=== PATIENT | male | born 1980 | race American Indian/Alaskan Native ===

== ENCOUNTER → 2018-05-06 11:09 | Outpatient (CLI) | payer MEDICAID, OTHER, SELFPAY ==
--- NOTE | 2018-05-06 | DI.US.S_ITS ---
PROCEDURE: US ABDOMEN COMPLETE INDICATIONS: RIGHT UPPER QUADRANT PAIN TECHNIQUE: Real-time scanning was performed of the abdominal and retroperitoneal organs, with image documentation. COMPARISON: [facility], [place], KIDNEY/ URETER/BLADDER, 11/12/2016, 23:15. [facility], US, ABDOMEN COMPLETE, 04/27/2008, 7:13. FINDINGS: Liver: The liver demonstrates mildly prominent size. The liver demonstrates generalized increased echogenicity. This decreases ultrasound sensitivity for detection of hepatic masses. Gallbladder: No findings of gallstones or sludge are seen. The gallbladder wall is not thickened, measuring 3 mm or less. Likely gallbladder wall adenomyomatosis can be seen. No specific pericholecystic fluid is seen. The sonographic Garner sign is negative. Biliary ducts: Intrahepatic bile ducts are non-dilated. Extrahepatic bile duct caliber measures 2-3 mm. Normal is 6-7 mm or less in diameter, or 10 mm or less post-cholecystectomy. Pancreas: Visualized portions of the pancreas are sonographically normal. Spleen: Spleen is normal in size and homogeneous in echotexture. Kidneys: Kidneys are normal in size and echotexture. Right kidney measures 10.2 cm long; left kidney measures 10.8 cm long. No hydronephrosis or nephrolithiasis. No solid masses. The renal cortex measures within normal limits for thickness. Aorta: Visualized aorta is normal in caliber at less than 3 cm. Iliacs: Not seen, obscured by overlying bowel gas. IVC: Intrahepatic inferior vena cava is patent. Miscellaneous: No free abdominal fluid. IMPRESSION: The gallbladder demonstrates a normal sonographic appearance. No biliary dilatation is seen. The liver mildly prominent in size and demonstrates increased echogenicity. This finding is nonspecific, yet it is most commonly attributed to fatty infiltration. The spleen is not enlarged. Dictated by: Sanju Jones M.D. on 05/06/2018 at 12:41 Approved by: Sanju Jones M.D. on 05/06/2018 at 12:43
== END ==
PROVIDERS: Family Provider Physician Assistant; PCP Physician Assistant; Visit Provider Physician Assistant
DX: R10.11 Right upper quadrant pain (principal)
CPT/HCPCS: 76700

== ENCOUNTER 2018-05-31 21:01 | Emergency (ER) | payer MEDICAID, OTHER, SELFPAY ==
[2018-05-31 21:04] VITALS: BP 115/75; PULSE 84; RESP 14; TEMP 36.8; O2SAT 100
== END 2018-05-31 23:23 | disposition left against medical advice (07) ==
PROVIDERS: Emergency Provider Emergency Medicine; Family Provider Physician Assistant; PCP Physician Assistant
DX: Z53.21 Procedure and treatment not carried out due to patient leaving prior to being seen by health care provider (principal)
CPT/HCPCS: 99282

== ENCOUNTER 2018-06-02 09:45 | Emergency (ER) | payer MEDICAID, OTHER, SELFPAY ==
[2018-06-02 09:49] VITALS: BP 116/72; PULSE 66; RESP 16; TEMP 36.3; O2SAT 99
--- NOTE | 2018-06-02 10:32 | ED.ABDPAIN ---
HPI - Abdominal Pain General Chief Complaint: Abdominal Pain Stated Complaint: upper right side pain Time Seen by Provider: 06/02/18 10:27 Source: patient Mode of arrival: ambulatory Limitations: no limitations History of Present Illness HPI narrative: Patient is a 37-year-old male who presents with right upper quadrant pain. He thinks that there is something wrong with his gallbladder he has never had an ultrasound. He throws up every time he eats. He was supposed to have a referral to [place] surgeon from [facility] however it never went through. He continues to have pain fever. He has not taken anything for pain he currently does not want anything for pain MD complaint: abdominal pain Onset (ago): week(s) Pain Consistency: intermittent Location: RUQ Severity: moderate Quality: sharp Radiation: none Migration to: no migration Relieving factors: nothing Exacerbating factors: nothing Related Data Allergies Allergy/AdvReac Type Severity Reaction Status Date / Time venom-honey bee Allergy Severe Anaphylaxis Verified 05/31/18 21:08 [BEE VENOM (HONEY BEE)] carisoprodol [From SOMA] Allergy Unknown Verified 05/31/18 21:08 cephalexin [CEPHALEXIN] Allergy Unknown Verified 05/31/18 21:08 codeine [CODEINE] Allergy Unknown Verified 05/31/18 21:08 erythromycin base Allergy Unknown Verified 05/31/18 21:08 [From PEDIAZOLE] Penicillins [PENICILLINS] Allergy Unknown Verified 05/31/18 21:08 somatropin [SOMATROPIN] Allergy Unknown Verified 05/31/18 21:08 Sulfa (Sulfonamide Allergy Unknown Verified 05/31/18 21:08 Antibiotics) [SULFA (SULFONAMIDE ANTIBIOTICS)] sulfisoxazole Allergy Unknown Verified 05/31/18 21:08 [From PEDIAZOLE] NSAIDS Allergy Severe Anaphylaxis Uncoded 05/31/18 21:08 Review of Systems Review of Systems GENERAL: Denies chills, fatigue, malaise, fever, sweats, travel HEENT: Denies sinus pain, ear pain, sore throat, difficulty swallowing, neck pain RESPIRATORY: Denies dyspnea, cough, wheezing, hemoptysis, sputum. CARDIOVASCULAR: Denies chest pain, palpitations, orthopnea, edema GASTROINTESTINAL: See HPI : Denies dysuria, frequency, incontinence, hematuria, urinary retention, flank pain. MUSCULOSKELETAL: Denies weakness, joint pain, or bony pain SKIN: No rash, no erythema, no pruritus NEUROLOGIC: Denies weakness, dizziness, headache, numbness, change in speech, confusion PSYCHIATRIC: No concerning psychosocial issues. 12 point review of systems is negative except for those stated above and HPI [facility] Medical History (Updated 06/02/18 @ 12:10 by Leonor Sanchez DO) Patient denies significant medical history (Acute) Surgical History (Updated 06/02/18 @ 17:39 by Leonor Sanchez DO) Status post appendectomy (Acute) Social History Smoking Status: Former smoker Social History Smoking Status: Former smoker Exam Initial Vital Signs Initial Vital Signs: Vital Signs Temperature 97.4 F L 06/02/18 09:49 Pulse Rate 66 06/02/18 09:49 Respiratory Rate 16 06/02/18 09:49 Blood Pressure 116/72 06/02/18 09:49 Pulse Oximetry 99 06/02/18 09:49 GENERAL: Well-appearing, well-nourished and in no acute distress. HEENT: Head atraumatic,EOMI, pupils reactive CARDIOVASCULAR: Regular rate and rhythm without murmurs, rubs or gallops. RESPIRATORY: Breath sounds equal bilaterally, no wheezes rales or rhonchi. ABDOMEN: Soft, RUQ pain, no guarding no rebound EXTREMITIES: Normal range of motion, no clubbing or edema. Neurovascularly intact NEUROLOGICAL: Alert and oriented x4.Normal gait and speech. SKIN: Warm, dry, no laceration, no petechiae, no rashes or lesions. Course Orders Ordered: ED Orders 06/02/18 10:09 Complete Blood Count AUTO DIFF Stat Comprehensive Metabolic Panel Stat Lipase Stat Partial Thromboplastin Time Stat Prothrombin Time INR Stat 06/02/18 10:37 US abdomen complete Stat 06/02/18 11:43 EKG-12 Lead Stat Discontinued Medications Ketorolac Tromethamine (Toradol) 60 mg IM NOW ONE Stop: 06/02/18 10:51 Last Admin: 06/02/18 11:43 Dose: 60 mg Vital Signs - 8 hr 06/02/18 09:49 Temperature 97.4 F L Pulse Rate 66 Respiratory Rate 16 Blood Pressure 116/72 Pulse Oximetry 99 MDM - Abdominal Pain Lab Data Attestation: I reviewed the patient's lab results. Result diagrams: 06/02/18 10:09 06/02/18 10:09 Lab Results 06/02/18 06/02/18 06/02/18 Range/Units 10:09 10:09 10:09 WBC 5.4 (4.5-11.0) X10^3/uL RBC 5.60 (4.5-5.9) X10^6/uL Hgb 15.6 (13.5-17.5) g/dL Hct 44.3 (41-53) % MCV 79.1 L (80-100) fL MCH 27.9 (26-34) PG MCHC 35.3 (30-36) % RDW 14.5 (11.6-14.8) % Plt Count 338 (150-400) X10^3/uL Neut % (Auto) 62.5 (50-75) % Lymph % (Auto) 29.9 (25-40) % [place] % (Auto) 4.1 (3-14) % Eos % (Auto) 2.6 (2-4) % Baso % (Auto) 0.9 (0-2) % Neut # (Auto) 3400 (6550-6354) /uL Lymph # (Auto) 1600 (7081-5803) /uL [place] # (Auto) 200 (0-900) /uL Eos # (Auto) 100 (0-450) /uL Baso # (Auto) 0 (0-100) /uL PT 11.0 (10.1-12.7) SECONDS INR 1.0 (0.9-1.3) APTT 30 (26.4-36.2) SECONDS Sodium 141 (137-145) mmol/L Potassium 3.6 (3.4-5.1) mmol/L Chloride 108 H (98-107) mmol/L Carbon Dioxide 25 (22-32) mmol/L BUN 10 (9-20) mg/dL Creatinine 0.80 (0.66-1.25) mg/dL Estimated GFR > 60.0 (>60) mL/min BUN/Creatinine Ratio 12.5 (6-22) Glucose 110 H (70-100) mg/dL Calcium 8.7 (8.4-10.2) mg/dL Total Bilirubin 0.5 (0.2-1.3) mg/dL AST 34 (17-59) IU/L ALT 52 (21-72) IU/L Alkaline Phosphatase 71 (38-126) U/L Total Protein 7.0 (6.3-8.2) g/dL Albumin 3.9 (3.5-5.0) g/dL Globulin 3.1 (1.7-4.1) g/dL Albumin/Globulin Ratio 1.3 (1.0-2.8) Lipase 212 (23-300) U/L Point of care testing: Urine Dip Bedside Urine Glucose Negative Bedside Urine Bilirubin + 1 Bedside Urine Ketone +/- 5 Urine Specific [place] 1.020 Bedside Urine Occult Blood +/- Bedside Urine pH 7.5 Bedside Urine Protein +/- 15 Bedside Urine Urobilinogen +/- 1mg Bedside Urine Nitrite - Negative Bedside Urine Leukocytes - Negative Esterase Imaging Data US - abdomen: Radiologist's impression: PROCEDURE: US ABDOMEN COMPLETE INDICATIONS: RIGHT UPPER QUADRANT PAIN TECHNIQUE: Real-time scanning was performed of the abdominal and retroperitoneal organs, with image documentation. COMPARISON: [facility], US, US ABDOMEN COMPLETE, 05/06/2018, 11:27. FINDINGS: Liver: Liver demonstrates increased echogenicity compatible with steatosis. Gallbladder: The gallbladder is nondistended limiting evaluation. No definite gallstones identified. Biliary ducts: Intrahepatic bile ducts are non-dilated. Extrahepatic bile duct caliber measures 2-3 mm. Normal is 6-7 mm or less in diameter, or 10 mm or less post-cholecystectomy. Pancreas: Visualized portions of the pancreas are sonographically normal. Spleen: Spleen is normal in size and homogeneous in echotexture. Kidneys: Right kidney measures 9.7 cm long; left kidney measures 11 cm long. No hydronephrosis. Aorta: Visualized aorta is normal in caliber at less than 3 cm. Iliacs: Proximal common iliac arteries are normal in caliber at less than 2.5 cm. IVC: Intrahepatic inferior vena cava is patent. Miscellaneous: No free abdominal fluid. IMPRESSION: 1. Nondistention of the gallbladder limiting evaluation. No definite gallstones identified. If clinical concern persists for cholecystitis, consider a repeat limited study of the gallbladder after adequate fasting period. 2. Increased hepatic echogenicity compatible with steatosis. Dictated by: Everton Munoz M.D. on 06/02/2018 at 11:55 Approved by: Everton Munoz M.D. on 06/02/2018 at 11:58 ECG Data Attestation: I personally reviewed and interpreted this ECG as follows: Prior ECG tracings: available for review Interpretation: Normal sinus rhythm rate [address] changes. MDM Narrative Medical decision making narrative: At this time no evidence of acute gallbladder disease. No sign of acute cholecystitis. This time recommend outpatient follow-up for pain. He does have some mild hematuria but no right-sided flank pain pain not consistent with kidney stone. At this time no further imaging indicated. Discharge Plan Departure Patient Disposition: Home Clinical Impression: Abdominal pain Qualifiers: Abdominal location: right upper quadrant Qualified Code(s): R10.11 - Right upper quadrant pain Discharge Date/Time: 06/02/18 12:16 Interventions: ED Discharge Assessment Last Done: 06/02/18 12:36 Instructions: Gallstones Activity Restrictions/Additional Instructions: *You have been diagnosed with right upper quadrant pain, at this time no gallstones or gallbladder disease is identified. *What to do: Speak with her PCP you may still require referral to [place] surgeon *Continue to take medications as directed Tylenol 650 mg every 4-6 hours if needed for pain *Follow up with your primary care provider in 2-3 days *Return to ER if you should have increasing pain persistent vomiting [or] any new, worsening or concerning symptoms Referrals: Daja Goel PA-C [Primary Care Provider] -
[2018-06-02 10:35] LABS: Add Manual Diff / Slide Review NO; Basophils Absolute Auto 0 /uL (0-100); Basophils Percent Auto 0.9 % (0-2); Eosinophils Absolute Auto 100 /uL (0-450); Eosinophils Percent Auto 2.6 % (2-4); Hematocrit 44.3 % (41-53); Hemoglobin 15.6 g/dL (13.5-17.5); Lymphocytes Absolute Auto 1600 /uL (1100-4500); Lymphocytes Percent Auto 29.9 % (25-40); Mean Corpuscular HGB Conc 35.3 % (30-36); Mean Corpuscular Hemoglobin 27.9 PG (26-34); Mean Corpuscular Volume 79.1 fL (80-100); Monocytes Absolute Auto 200 /uL (0-900); Monocytes Percent Auto 4.1 % (3-14); Neutrophils Absolute Auto 3400 /uL (1500-7000); Neutrophils Percent Auto 62.5 % (50-75); Platelet Count 338 X10^3/uL (150-400); Red Cell Distribution Width 14.5 % (11.6-14.8); White Blood Cell Count 5.4 X10^3/uL (4.5-11.0)
--- NOTE | 2018-06-02 10:36 | ED_ITS ---
HPI - Abdominal Pain General Chief Complaint: Abdominal Pain Stated Complaint: upper right side pain Time Seen by Provider: 06/02/18 10:27 Source: patient Mode of arrival: ambulatory Limitations: no limitations History of Present Illness HPI narrative: Patient is a 37-year-old male who presents with right upper quad rant pain. He thinks that there is something wrong with his gallbladder he has never had an ultrasound. He throws up every time he eats. He was supposed to have a referral to [place] surgeon from [facility] however it never went through. He continues to have pain fever. He has not taken anything for pain he currently does not want anything for pain MD complaint: abdominal pain Onset (ago): week(s) Pain Consistency: intermittent Location: RUQ Severity: moderate Quality: sharp Radiation: none Migration to: no migration Relieving factors: nothing Exacerbating factors: nothing Related Data Allergies Allergy/AdvReac Type Severity Reaction Status Date / Time venom-honey bee Allergy Severe Anaphylaxis Verified 05/31/18 21:08 [BEE VENOM (HONEY BEE)] carisoprodol [From SOMA] Allergy Unknown Verified 05/31/18 21:08 cephalexin [CEPHALEXIN] Allergy Unknown Verified 05/31/18 21:08 codeine [CODEINE] Allergy Unknown Verified 05/31/18 21:08 erythromycin base Allergy Unknown Verified 05/31/18 21:08 [From PEDIAZOLE] Penicillins [PENICILLINS] Allergy Unknown Verified 05/31/18 21:08 somatropin [SOMATROPIN] Allergy Unknown Verified 05/31/18 21:08 Sulfa (Sulfonamide Allergy Unknown Verified 05/31/18 21:08 Antibiotics) [SULFA (SULFONAMIDE ANTIBIOTICS)] sulfisoxazole Allergy Unknown Verified 05/31/18 21:08 [From PEDIAZOLE] NSAIDS Allergy Severe Anaphylaxis Uncoded 05/31/18 21:08 Review of Systems Review of Systems GENERAL: Denies chills, fatigue, malaise, fever, sweats, travel HEENT: Denies sinus pain, ear pain, sore throat, difficulty swallowing, neck pain RESPIRATORY: Denies dyspnea, cough, wheezing, hemoptysis, sputum. CARDIOVASCULAR: Denies chest pain, palpitations, orthopnea, edema GASTROINTESTINAL: See HPI : Denies dysuria, frequency, incontinence, hematuria, urinary retention, flank pain. MUSCULOSKELETAL: Denies weakness, joint pain, or bony pain SKIN: No rash, no erythema, no pruritus NEUROLOGIC: Denies weakness, dizziness, headache, numbness, change in speech, confusion PSYCHIATRIC: No concerning psychosocial issues. 12 point review of systems is negative except for those stated above and HPI [facility] Medical History (Updated 06/02/18 @ 12:10 by Leonor Sanchez DO) Patient denies significant medical history (Acute) Surgical History (Updated 06/02/18 @ 17:39 by Leonor Sanchez DO) Status post appendectomy (Acute) Social History Smoking Status: Former smoker Social History Smoking Status: Former smoker Exam Initial Vital Signs Initial Vital Signs: Vital Signs Temperature 97.4 F L 06/02/18 09:49 Pulse Rate 66 06/02/18 09:49 Respiratory Rate 16 06/02/18 09:49 Blood Pressure 116/72 06/02/18 09:49 Pulse Oximetry 99 06/02/18 09:49 GENERAL: Well-appearing, well-nourished and in no acute distress. HEENT: Head atraumatic,EOMI, pupils reactive CARDIOVASCULAR: Regular rate and rhythm without murmurs, rubs or gallops. RESPIRATORY: Breath sounds equal bilaterally, no wheezes rales or rhonchi. ABDOMEN: Soft, RUQ pain, no guarding no rebound EXTREMITIES: Normal range of motion, no clubbing or edema. Neurovascularly int act NEUROLOGICAL: Alert and oriented x4.Normal gait and speech. SKIN: Warm, dry, no laceration, no petechiae, no rashes or lesions. Course Orders Ordered: ED Orders 06/02/18 10:09 Complete Blood Count AUTO DIFF Stat Comprehensive Metabolic Panel Stat Lipase Stat Partial Thromboplastin Time Stat Prothrombin Time INR Stat 06/02/18 10:37 US abdomen complete Stat 06/02/18 11:43 EKG-12 Lead Stat Discontinued Medications Ketorolac Tromethamine (Toradol) 60 mg IM NOW ONE Stop: 06/02/18 10:51 Last Admin: 06/02/18 11:43 Dose: 60 mg Vital Signs - 8 hr 06/02/18 09:49 Temperature 97.4 F L Pulse Rate 66 Respiratory Rate 16 Blood Pressure 116/72 Pulse Oximetry 99 MDM - Abdominal Pain Lab Data Attestation: I reviewed the patient's lab results. Result diagrams: 06/02/18 10:09 06/02/18 10:09 Lab Results 06/02/18 06/02/18 06/02/18 Range/Units 10:09 10:09 10:09 WBC 5.4 (4.5-11.0) X10^3/uL RBC 5.60 (4.5-5.9) X10^6/uL Hgb 15.6 (13.5-17.5) g/dL Hct 44.3 (41-53) % MCV 79.1 L (80-100) fL MCH 27.9 (26-34) PG MCHC 35.3 (30-36) % RDW 14.5 (11.6-14.8) % Plt Count 338 (150-400) X10^3/uL Neut % (Auto) 62.5 (50-75) % Lymph % (Auto) 29.9 (25-40) % [place] % (Auto) 4.1 (3-14) % Eos % (Auto) 2.6 (2-4) % Baso % (Auto) 0.9 (0-2) % Neut # (Auto) 3400 (5057-2438) /uL Lymph # (Auto) 1600 (0684-4708) /uL [place] # (Auto) 200 (0-900) /uL Eos # (Auto) 100 (0-450) /uL Baso # (Auto) 0 (0-100) /uL PT 11.0 (10.1-12.7) SECONDS INR 1.0 (0.9-1.3) APTT 30 (26.4-36.2) SECONDS Sodium 141 (137-145) mmol/L Potassium 3.6 (3.4-5.1) mmol/L Chloride 108 H (98-107) mmol/L Carbon Dioxide 25 (22-32) mmol/L BUN 10 (9-20) mg/dL Creatinine 0.80 (0.66-1.25) mg/dL Estimated GFR > 60.0 (>60) mL/min BUN/Creatinine Ratio 12.5 (6-22) Glucose 110 H (70-100) mg/dL Calcium 8.7 (8.4-10.2) mg/dL Total Bilirubin 0.5 (0.2-1.3) mg/dL AST 34 (17-59) IU/L ALT 52 (21-72) IU/L Alkaline Phosphatase 71 (38-126) U/L Total Protein 7.0 (6.3-8.2) g/dL Albumin 3.9 (3.5-5.0) g/dL Globulin 3.1 (1.7-4.1) g/dL Albumin/Globulin Ratio 1.3 (1.0-2.8) Lipase 212 (23-300) U/L Point of care testing: Urine Dip Bedside Urine Glucose Negative Bedside Urine Bilirubin + 1 Bedside Urine Ketone +/- 5 Urine Specific [place] 1.020 Bedside Urine Occult Blood +/- Bedside Urine pH 7.5 Bedside Urine Protein +/- 15 Bedside Urine Urobilinogen +/- 1mg Bedside Urine Nitrite - Negative Bedside Urine Leukocytes - Negative Esterase Imaging Data US - abdomen: Radiologist's impression: PROCEDURE: US ABDOMEN COMPLETE INDICATIONS: RIGHT UPPER QUADRANT PAIN TECHNIQUE: Real-time scanning was performed of the abdominal and retroperitoneal organs, with image documentation. COMPARISON: [facility], US, US ABDOMEN COMPLETE, 05/06/2018, 11:27. FINDINGS: Liver: Liver demonstrates increased echogenicity compatible with steatosis. Gallbladder: The gallbladder is nondistended limiting evaluation. No definite gallstones identified. Biliary ducts: Intrahepatic bile ducts are non-dilated. Extrahepatic bile duct caliber measures 2-3 mm. Normal is 6-7 mm or less in diameter, or 10 mm or less post-cholecystectomy. Pancreas: Visualized portions of the pancreas are sonographically normal. Spleen: Spleen is normal in size and homogeneous in echotexture. Kidneys: Right kidney measures 9.7 cm long; left kidney measures 11 cm long. No hydronephrosis. Aorta: Visualized aorta is normal in caliber at less than 3 cm. Iliacs: Proximal common iliac arteries are normal in caliber at less than 2.5 cm. IVC: Intrahepatic inferior vena cava is patent. Miscellaneous: No free abdominal fluid. IMPRESSION: 1. Nondistention of the gallbladder limiting evaluation. No definite gallstones identified. If clinical concern persists for cholecystitis, consider a repeat limited study of the gallbladder after adequate fasting period. 2. Increased hepatic echogenicity compatible with steatosis. Dictated by: Everton Munoz M.D. on 06/02/2018 at 11:55 Approved by: Everton Munoz M.D. on 06/02/2018 at 11:58 ECG Data Attestation: I personally reviewed and interpreted this ECG as follows: Prior ECG tracings: available for review Interpretation: Normal sinus rhythm rate [address] changes. MDM Narrative Medical decision making narrative: At this time no evidence of acute gallbladder disease. No sign of acute cholecystitis. This time recommend outpatient follow-up for pain. He does have some mild hematuria but no right-sided flank pain pain not consistent with kidney stone. At this time no further imaging indicated. Discharge Plan Departure Patient Disposition: Home Clinical Impression: Abdominal pain Qualifiers: Abdominal location: right upper quadrant Qualified Code(s): R10.11 - Right upper quadrant pain Discharge Date/Time: 06/02/18 12:16 Interventions: ED Discharge Assessment Last Done: 06/02/18 12:36 Instructions: Gallstones Activity Restrictions/Additional Instructions: *You have been diagnosed with right upper quadrant pain, at this time no gallstones or gallbladder disease is identified. *What to do: Speak with her PCP you may still require referral to [place] surgeon *Continue to take medications as directed Tylenol 650 mg every 4-6 hours if needed for pain *Follow up with your primary care provider in 2-3 days *Return to ER if you should have increasing pain persistent vomiting [or] any new, worsening or concerning symptoms Referrals: Daja Goel PA-C [Primary Care Provider] -
[2018-06-02 10:47] LABS: PTT Partial Thromboplastin Tim 30 SECONDS (26.4-36.2)
[2018-06-02 10:54] LABS: Alanine Aminotransferase 52 IU/L (21-72); Albumin 3.9 g/dL (3.5-5.0); Albumin Globulin Ratio 1.3 (1.0-2.8); Alkaline Phosphatase 71 U/L (38-126); Aspartate Aminotransferase 34 IU/L (17-59); BUN Creatinine Ratio 12.5 (6-22); Bilirubin Total 0.5 mg/dL (0.2-1.3); Blood Urea Nitrogen 10 mg/dL (9-20); Calcium 8.7 mg/dL (8.4-10.2); Carbon Dioxide 25 mmol/L (22-32); Chloride 108 mmol/L (98-107); Estimated Glomerular Filt Rate > 60.0 mL/min (>60); Globulin 3.1 g/dL (1.7-4.1); Glucose 110 mg/dL (70-100); HEMOLYSIS < 15 (0-50); Lipase 212 U/L (23-300); Potassium 3.6 mmol/L (3.4-5.1); Sodium 141 mmol/L (137-145)
[2018-06-02] MEDS: KETOROLAC 60 MG/2 ML VIAL IM (11:43)
--- NOTE | 2018-06-02 11:48 | PC.NURSE ---
right flank pain while at rest , for couple of weeks, denies fever, with vomiting. denies injuries or traumas.
== END 2018-06-02 12:16 | disposition home or self-care (01) ==
PROVIDERS: Emergency Provider Emergency Medicine; Family Provider Physician Assistant; PCP Physician Assistant
DX: R10.11 Right upper quadrant pain (principal)
CPT/HCPCS: 36415; 76700; 80053; 81003; 83690; 85025; 85610; 85730; 93005; 96372; 99282; 99285; J1885

== ENCOUNTER 2018-07-28 09:27 | Day surgery (SDC) | payer OTHER, MEDICAID, SELFPAY ==
[2018-07-23 07:59] VITALS: BMI 36.3
[2018-07-28] VITALS (9 sets, daily range): BP systolic 114–139; BP diastolic 75–87; PULSE 58–73; RESP 10–16; TEMP 36–36.4; O2SAT 96–99; BMI 35.4
--- NOTE | 2018-07-28 | PATH_ITS ---
[facility] Accession Number: [id number] . 01 Material submitted: . gallbladder - GALLBLADDER AND CONTENTS . 02 Diagnosis: Gallbladder and Contents, Laparoscopic Cholecystectomy: Chronic cholecystitis and cholesterolosis. [facility]/07/30/2018 . 02 Electronically signed: . Nafisa Hernandez MD, Pathologist NPI- [id number] . 01 Gross description: . Received in formalin, labeled gallbladder and contents, is an opened gallbladder (length-7.2 cm, diameter-3.0 cm) with luong-pink smooth and shiny serosa and a patent cystic duct. No lymph nodes are identified. The lumen contains dark brown solid soft material. No calculi are present. The mucosa is patiño-yellow and rough. The wall is up to 0.1 cm thick. No nodules, masses or lesions are identified. Section code: (A1) cystic duct resection margin and two serial sections from the body; (A2) two longitudinal sections from the fundus. ([id number]) /[facility] . 02 Pathologist provided ICD-10: K81.1 . 02 CPT . 703941 Specimen Comment: A duplicate report has been generated due to demographic updates. Performed at: 01 [facility] [address] [facility], [place], [place] [id number] MD Everton Swanson MD Phone: [phone] Performed at: 02 [facility] [address] [place], [place] [id number] MD Tawny Suazo MD Phone: [phone]
[2018-07-28] MEDS: LACTATED RINGERS 1,000 ML 42 ML IV ×2 (09:59→12:44)
[2018-07-28] MEDS: levoFLOXacin 750 MG/150 ML PIGGYBACK 100 MG IV (10:17)
[2018-07-28] MEDS: metroNIDAZOLE 500 MG/100 ML PIGGYBACK 100 MG IV (11:00)
--- NOTE | 2018-07-28 11:23 | SUR.OPER ---
Supine on padded OR bed, head on pillow, arms secured on padded arm boards at <90 degrees abduction, legs uncrossed, safety belt at thigh, tape over blanket over lower legs, footboard.
[2018-07-28] MEDS: BUPIVACAINE 0.25% W/ EPI 30 ML VIAL INJ (11:31)
[2018-07-28] MEDS: HYDROMORPHONE 2 MG INJ 0.5 MG IV ×4 (13:07→13:25)
--- NOTE | 2018-07-28 13:13 | P.OP_ITS ---
Operative Date/Time/Diagnoses Date of procedure: 07/28/18 Time of procedure: 13:12 Pre-op diagnosis: biliary colic Procedure & Clinicians Procedure: Laparoscopic cholecystectomy Same procedure as scheduled: Yes Indications: 38-year-old man presents with classical symptoms of biliary colic, right upper pain tenderness following fatty meals. He was tender over the g allbladder on exam. Surgeon: Paulo Rodriguez Click Yes if Unassisted: Yes Anesthesia Type: General Operative Notes Findings: Extensive omental adhesions encasing gallbladder Thickened cystic duct requiring ligated loop to close Closure Type: primary Specimen(s): other (Gallbladder) Applied: drain(s) Estimated Blood Loss (mL): 30 Procedure in detail: Patient was brought to the operating room his intubated without incident was prepped and draped in the usual sterile fashion a time-out was completed. Entry into the abdomen was performed using Veress needle technique. A small stab incision was made at grossman's point and a Veress needle was advanced with a distinct click into the abdomen there was no succus or blood aspirated and there was a confirmatory saline drop test needle was connected to insufflation tubing however initial insufflation pressures remained high. The it needle was then reinserted to a deeper depth also with a distinct clinic again there was a confirmatory saline drop test and no blood or succus aspirated at this location insufflation pressures were low and the abdomen was insufflated without incident a 5 mm port was then advanced through a small umbilical incision using Visiport technique. The dark space of the insufflated abdomen was visualized without incident. The Veress needle site was identified no injury or bleeding was identified at its location and it was removed without incident 2 5 mm ports were then placed in the right upper quadrant, and an additional 11 mm port placed in the epigastrium. Inspecting the gallbladder it was immediately identified a densely encased in greater omentum to fundus of the gallbladder was grasped and elevated cephalad. Then became in a tedious process of stripping down the densely adherent omentum off of gallbladder wall. Due to the intimate and long-standing adhesions between the greater omentum and the gallbladder numerous aspects of the greater omentum were left on the wall of the gallbladder itself. And the individual feeding vessels of the greater omentum were either controlled with the cautery or clips. Eventually a good plane was encountered between the gallbladder wall and the greater omentum was likely just deep to the serosa of the gallbladder itself. This was carried down words the infundibulum the gallbladder was identified and retracted laterally and the dissection continued in a posterior direction until a prominent cystic duct was identified. This is seen to directly emanate the gallbladder itself using primarily ball in dissection a window was created behind it with a critical view of safety obtained enlarging the window further the cystic artery was not clearly identified along the course of the more medial aspect of the gallbladder wall. Carefully inspecting the area where the omentum was stripped down from this area it became clear that and arborized of cystic artery had been individually pruned off of the gallbladder. The cystic duct was clipped and divided the duct itself was quite thickened and I was not confident that the clips across the duct securely as a consequence the cystic duct stump was elevated and the ligated in PDS loop was used to snare the end. The gallbladder was then reflected off the gallbladder fossa without incident It was detached from the liver and placed in an Endo-Catch bag -the was removed from the abdomen via the epigastric port. The gallbladder fossa as well as more since patch was then irrigated out until irrigant was clear. Hemostasis was good The epigastric port site was then closed using 2 trans fascial 0 Vicryl sutures -placed via a suture closure device Ports were then withdrawn under direct vision. Skin was closed using monofilament is or bubble suture in subcuticular fashion after each site was irrigated. Skin glue placed Complications: none Condition: stable Disposition: PACU Plan for aftercare: Home
[2018-07-28] MEDS: OXYCODONE/ACETAMINOPHEN 5/325 TABLET 1 TAB PO (13:43)
== END 2018-07-28 14:40 | disposition home or self-care (01) ==
PROVIDERS: Family Provider Physician Assistant; PCP Physician Assistant; Visit Provider Surgery
PROC: 0FT44ZZ Resection of Gallbladder, Percutaneous Endoscopic Approach (ICD-10-PCS; CPT 47562; principal; 2018-07-28 10:45)
DX: K81.1 Chronic cholecystitis (principal); K66.0 Peritoneal adhesions (postprocedural) (postinfection)
CPT/HCPCS: 47562; J0330; J1100; J1170; J1956; J2405; J2704; J3010

== ENCOUNTER 2024-06-12 09:55 | Emergency (ER) | payer OTHER, SELFPAY ==
[2024-06-12 10:07] VITALS: BP 125/81; PULSE 78; RESP 16; TEMP 37.1; O2SAT 96; BMI 41.0
--- NOTE | 2024-06-12 10:07 | ED_ITS ---
HPI - General Adult General Chief complaint: Back Pain/Injury Stated complaint: Hurt Back Time Seen by Provider: 06/12/24 09:59 History of Present Illness HPI narrative: 43-year-old male with no history of chronic back pain, no back surgeries, no back injections, works at [employer], lifting yesterday 10:30 a.m. a slab of drinks, felt low back pain. Not responsive to [id number] medications. Worse with movements. No associated incontinence of urine or stool. No numbness or tingling to the perineal or perirectal area. No weakness or numbness to the legs. Although he has significant pain with any movement of the legs. Related Data Previous Rx's Medication Instructions Recorded acetaminophen 500 mg capsule 1,000 mg (2 x 500 mg) PO Q6H #30 07/28/18 caps oxycodone 5 mg tablet 5 mg PO Q4-6H PRN pain #10 tabs 07/28/18 hydrocodone 5 mg-acetaminophen 325 1 tab PO Q6H PRN pain #14 tabs 06/12/24 mg tablet methocarbamol 500 mg tablet 500 mg PO TID 7 days #21 tabs 06/12/24 methylprednisolone 4 mg tablets in See Rx Instructions PO .COMPLEX 06/12/24 a dose pack (Medrol (Gage)) #21 ea naproxen 500 mg tablet 500 mg PO BID 7 days #14 tabs 06/12/24 Allergies Allergy/AdvReac Type Severity Reaction Status Date / Time venom-honey bee Allergy Severe Anaphylaxis Verified 06/12/24 10:06 [BEE VENOM (HONEY BEE)] carisoprodol [From SOMA] Allergy Unknown Verified 06/12/24 10:06 cephalexin [CEPHALEXIN] Allergy Unknown Verified 06/12/24 10:06 codeine [CODEINE] Allergy Unknown Verified 06/12/24 10:06 erythromycin base Allergy Unknown Verified 06/12/24 10:06 [From PEDIAZOLE] Penicillins [PENICILLINS] Allergy Unknown Verified 06/12/24 10:06 somatropin [SOMATROPIN] Allergy Unknown Verified 06/12/24 10:06 Sulfa (Sulfonamide Allergy Unknown Verified 06/12/24 10:06 Antibiotics) [SULFA (SULFONAMIDE ANTIBIOTICS)] sulfisoxazole Allergy Unknown Verified 06/12/24 10:06 [From PEDIAZOLE] NSAIDS Allergy Unknown Anaphylaxis Uncoded 06/12/24 10:06 Patient History Medical History (Updated 06/12/24 @ 10:18 by Emery Vaughan MD) Asthma Finger fracture, right Traumatic brain injury (~2002) Surgical History (Updated 07/23/18 @ 08:04 by Elida Hidalgo, RN) Hx of appendectomy Social History (Updated 07/20/18 @ 10:19 by Gracie Allen, JENN) household members: spouse and family occupational status: employed Smoking Status: Never smoker alcohol intake: never substance use type: does not use alcohol intake frequency: 0-2 drinks per day Exam Narrative Exam Narrative: GENERAL: Well-developed patient, in mild distress. HEAD: Atraumatic. Normocephalic. EYES: Pupils equal round and reactive. Extraocular motions intact. No scleral icterus. No injection or drainage. ENT: Nose without bleeding, purulent drainage. Throat without erythema, tonsillar hypertrophy or exudate. Airway patent. NECK: Trachea midline. Non tender CARDIOVASCULAR: Regular rate and rhythm without murmurs, gallops, or rubs. RESPIRATORY: Clear to auscultation. Breath sounds equal bilaterally. No wheezes, rales, or rhonchi. GASTROINTESTINAL: Abdomen soft, non-tender, nondistended. EXTREMITIES: No edema or joint tenderness. BACK: Nontender without deformity or crepitance. No flank tenderness. No midline tenderness or step-off or redness. No vesicles/rash changes. NEURO: AOx3. Motor functions grossly nonfocal. Straight leg raise 20? bilaterally, seems to be making effort, has low back pain but no thigh/leg pain with 20? elevation both sides. SKIN: No rash or erythema of visible areas Initial Vital Signs Initial Vital Signs: Vital Signs Temperature 98.7 F 06/12/24 10:07 Pulse Rate 78 06/12/24 10:07 Respiratory Rate 16 06/12/24 10:07 Blood Pressure 125/81 06/12/24 10:07 Pulse Oximetry 96 06/12/24 10:07 Oxygen Delivery Method Room Air 06/12/24 10:07 Course Orders Ordered: Discontinued Medications Hydrocodone Bitart/Acetaminophen (Hydrocodone/Acet 5/325 Tablet) 1 tab PO NOW ONE Stop: 06/12/24 11:51 Last Admin: 06/12/24 11:56 Dose: 1 tab Documented By: PANKAJ Dexamethasone (Dexamethasone 10 Mg/Ml Vial) 10 mg IM NOW ONE Stop: 06/12/24 11:49 Last Admin: 06/12/24 11:56 Dose: 10 mg Documented By: PANKAJ Ketorolac Tromethamine (Ketorolac 30 Mg/Ml Vial) 30 mg IM NOW ONE Stop: 06/12/24 10:14 Last Admin: 06/12/24 10:34 Dose: 30 mg Documented By: PANKAJ Methocarbamol (Methocarbamol 500 Mg Tablet) 750 mg PO NOW ONE Stop: 06/12/24 10:14 Last Admin: 06/12/24 10:34 Dose: 750 mg Documented By: PANKAJ Vital Signs Vital signs: Vital Signs - 8 hr 06/12/24 10:07 Temperature 98.7 F Pulse Rate 78 Respiratory Rate 16 Blood Pressure 125/81 Pulse Oximetry 96 Oxygen Delivery Method Room Air Medical Decision Making Imaging Data CT lumbar spine: Radiologist's Impression: [place] [address] CT Scan Report Signed Patient: Samuel Jason MR#: [id number] : 1980 Acct:[id number] Age/Sex: 43 / M Date of Service: 06/12/24 Loc: ED Accession Number: [id number] Procedure: CT lumbar spine wo con Ordering Provider: Emery Vaughan MD PROCEDURE: CT LUMBAR SPINE WO CON INDICATIONS: back pain, cannot move legs due to pain TECHNIQUE: Noncontrast 3 mm thick sections acquired from the T12 level to the sacrum. Sagittal and coronal reformats were constructed. For radiation dose reduction, the following was used: automated exposure control. COMPARISON: None. FINDINGS: Image quality: Excellent. Bones: There is normal bony alignment. No acute vertebral body compression fractures. No suspicious lytic or blastic bony lesions. No pars defects. Probable physiologic wedging noted at T11 and T12. Mild disc space narrowing and arthropathy in the lower lumbar spine as well as at the thoracolumbar junction. No significant central stenosis throughout the exam. Arthropathy related moderate stenosis noted bilaterally at L5-S1. Soft tissues: No retroperitoneal masses or hematomas. Visualized aorta is normal in caliber. 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 Approved by: Robin Salinas M.D. on 06/12/2024 at 10:37 MDM Narrative Medical decision making narrative: 43-year-old male with no history of back problems, lifting yesterday, has increasing low back pain, feels quite painful with any attempted movement of legs. Arrived by EMS. Midline and paraspinal low lumbar tenderness on examination. Fair effort on SLR, diminished elevation. IM Toradol, p.o. Robaxin. CT lumbar spine ordered. CT lumbar spine without contrast. Impressions: ?Arthropathy related bilateral moderate neuroforaminal stenosis at L5-S1. ? see radiology report. We will add IM Decadron. Oral hydrocodone/acetaminophen. Rx Naproxen. Rx Hydrocodone/APAP. Rx medrol dosepak. FU with PCP advised. Off work next couple days. Re-check with PCP in 2d, return precautios discussed. Discharge Plan Departure Patient Disposition: Home Clinical Impression: Lumbar strain Instructions: DI for Low Back Pain, DI for Sciatica Activity Restrictions/Additional Instructions: Low back pain after lifting, no prior back surgeries or injections. No weakness or numbness to this to the legs but pain with movement. Injectable pain medications and oral pain medications given, oral muscle relaxant given. CT scan eventually was obtained, showing some narrowing at the L5/S1 facets on both sides. This does not necessarily mean you need surgical intervention at this area. Trial of medications and steroid in muscle relaxants for now. See your regular provider in follow up to assess symptoms for improvement. Consider MRI of the spine as an outpatient if symptoms persist. Return to this/nearest emergency department for any change worsening symptoms or any concerns prior. Avoid lifting for the next 2-3 days until reassessed by your regular provider. Prescriptions: New hydrocodone-acetaminophen 5-325 mg tablet 1 tab PO Q6H PRN (Reason: pain) Qty: 14 0RF naproxen 500 mg tablet 500 mg PO BID 7 Days Qty: 14 0RF methocarbamol 500 mg tablet 500 mg PO TID 7 Days Qty: 21 0RF methylprednisolone [Medrol (Gage)] 4 mg tablets,dose pack See Rx Instructions PO .COMPLEX Qty: 21 0RF Rx Instructions: orally per package directions; 6 tablets 1st day, 5 tablets 2nd day, 4 tablets 3rd day, 3 tablets 4th day, 2 tablets 5th day, 1 tablet on 6th day No Action acetaminophen 500 mg capsule 1,000 mg PO Q6H Qty: 30 0RF oxycodone 5 mg tablet 5 mg PO Q4-6H PRN (Reason: pain) Qty: 10 0RF Referrals: Elliot Sow PA-C [Primary Care Provider] - Stand Alone Forms: Patient Portal/API/Survey, Work Release Note
--- NOTE | 2024-06-12 10:14 | DI.CT.S_ITS ---
PROCEDURE: CT LUMBAR SPINE WO CON INDICATIONS: back pain, cannot move legs due to pain TECHNIQUE: Noncontrast 3 mm thick sections acquired from the T12 level to the sacrum. Sagittal and coronal reformats were constructed. For radiation dose reduction, the following was used: automated exposure control. COMPARISON: None. FINDINGS: Image quality: Excellent. Bones: There is normal bony alignment. No acute vertebral body compression fractures. No suspicious lytic or blastic bony lesions. No pars defects. Probable physiologic wedging noted at T11 and T12. Mild disc space narrowing and arthropathy in the lower lumbar spine as well as at the thoracolumbar junction. No significant central stenosis throughout the exam. Arthropathy related moderate stenosis noted bilaterally at L5-S1. Soft tissues: No retroperitoneal masses or hematomas. Visualized aorta is normal in caliber. 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 Approved by: Robin Salinas M.D. on 06/12/2024 at 10:37
[2024-06-12] MEDS: KETOROLAC 30 MG/ML VIAL IM (10:34)
[2024-06-12] MEDS: methocarbamoL 500 MG TABLET 750 MG PO (10:34)
[2024-06-12] MEDS: HYDROCODONE/ACET 5/325 TABLET 1 TAB PO (11:56)
[2024-06-12] MEDS: DEXAMETHASONE 10 MG/ML VIAL IM (11:56)
[2024-06-12 12:41] VITALS: BP 140/84; PULSE 84; RESP 16; O2SAT 97
== END 2024-06-12 12:42 | disposition home or self-care (01) ==
PROVIDERS: Emergency Provider Emergency Medicine; Family Provider Physician Assistant; PCP Physician Assistant
DX: S39.012A Strain of muscle, fascia and tendon of lower back, initial encounter (principal); X50.0XXA Overexertion from strenuous movement or load, initial encounter; Y92.524 Gas station as the place of occurrence of the external cause; Y99.0 Civilian activity done for income or pay
CPT/HCPCS: 72131; 96372; 99283; 99284; J1100; J1885